=== PATIENT | male | born 1960 | race African-American/Black ===

== ENCOUNTER 2017-06-18 14:42 | Emergency (ER) | payer OTHER ==
[2017-06-18 16:43] LABS: Bilirubin,Urine NEG (Negative); Blood,Urine NEG (Negative); Ketones,Urine NEG (Negative); Leukocyte Esterase,Urine NEG (Negative); Nitrite,Urine NEG (Negative); Protein,Urine <15 mg/dL mg/dL (Negative); Urobilinogen,Urine < 2.0 mg/dL (<2.0); WBC,Urine < 1.0 /HPF (0.0-6.0)
--- NOTE | 2017-06-18 16:54 | Emergency Department Report ---
ED Male HPI - General Chief complaint: Urogenital-Male Stated complaint: CHECK UP Time Seen by Provider: 06/18/17 16:31 Source: patient, family Mode of arrival: Ambulatory Limitations: No Limitations - History of Present Illness Initial comments: 57-year-old male with a history of 2 weeks worth of left testicular swelling. Patient states that he started in an assisted left testicle swell approximately 2 weeks ago. No fevers chills nausea vomiting. No dysuria. No urinary frequency. He does not have significant pain other than when standing. MD Complaint: testicle swelling -: Gradual, week(s) (2) Location: left testicle Radiation: none Improves with: none Worsens with: none denies other symptoms, swelling. denies: discharge, mass, rash, urinary retention, blood in urine, fever, nausea/vomiting, incontinence - Related Data Allergies Allergy/AdvReac Type Severity Reaction Status Date / Time No Known Allergies Allergy Unverified 06/18/17 14:48 ED Review of Systems ROS: Stated complaint: CHECK UP Other details as noted in HPI Constitutional: denies: chills, diaphoresis Respiratory: denies: cough, shortness of breath Cardiovascular: denies: chest pain, palpitations Gastrointestinal: denies: abdominal pain, nausea, vomiting, diarrhea, constipation Genitourinary: denies: urgency, dysuria, frequency, hematuria, discharge Musculoskeletal: denies: back pain Skin: denies: rash, lesions Neurological: denies: headache, weakness, numbness, paresthesias ED Past Medical Hx - Past Medical History Previous Medical History?: No - Surgical History Past Surgical History?: No - Family History Family history: no significant - Social History Smoking Status: Current Every Day Smoker Substance Use Type: None ED Physical Exam - General Limitations: No Limitations General appearance: alert, in no apparent distress - Head Head exam: Present: atraumatic, normocephalic - Eye Eye exam: Present: normal appearance. Absent: scleral icterus, conjunctival injection - ENT ENT exam: Present: mucous membranes moist - Neck Neck exam: Present: normal inspection - Respiratory Respiratory exam: Present: normal lung sounds bilaterally. Absent: respiratory distress, wheezes - Cardiovascular Cardiovascular Exam: Present: regular rate, normal rhythm. Absent: systolic murmur, diastolic murmur, rubs, gallop - GI/Abdominal GI/Abdominal exam: Present: soft, normal bowel sounds. Absent: distended, tenderness - Rectal Rectal exam: Present: deferred - exam: Present: scrotal swelling (left-sided). Absent: testicular tenderness , urethral discharge External exam: Present: swelling. Absent: erythema, lesions, lacerations, ecchymosis - Extremities Exam Extremities exam: Absent: normal capillary refill, pedal edema - Back Exam Back exam: Present: normal inspection - Neurological Exam Neurological exam: Present: alert, oriented X3 - Psychiatric Psychiatric exam: Present: normal affect, normal mood - Skin Skin exam: Present: warm, dry, intact, normal color. Absent: rash ED Course Vital Signs 06/18/17 06/18/17 06/18/17 14:48 16:31 16:39 Temperature 97.5 F L 97.4 F L Pulse Rate 82 64 Respiratory 18 16 16 Rate Blood Pressure 139/81 Blood Pressure 134/74 [Left] O2 Sat by Pulse 96 98 Oximetry ED Medical Decision Making - Radiology Data Radiology results: report reviewed, image reviewed - Medical Decision Making 57-year-old male with 2 weeks of left testicular swelling. Denies pain fevers chills. He does have some firm swelling of the left testicle on clinical exam. Check urine and ultrasound and reassess. Large varicocele noted on ultrasound. Plan to give patient referral to urology. Portions of this chart were dictated with dictation software. There may be dictation errors contained within this note. Critical care attestation.: If time is entered above; I have spent that time in minutes in the direct care of this critically ill patient, excluding procedure time. ED Disposition Clinical Impression: Varicocele Disposition: DC- TO HOME OR SELFCARE Is pt being admited?: No Condition: Stable Instructions: Testicle Pain (ED), Varicocele (ED) Referrals: PRIMARY CARE, [Primary Care Provider] - 3-5 Days JOMAR BAXTER MD [Staff Physician] - 3-5 Days (Call for follow-up)
--- NOTE | 2017-06-18 16:59 | Ultrasound Report ---
FINAL REPORT PROCEDURE: Scrotal ultrasound. TECHNIQUE: Real-time aguilera-scale and color flow Doppler sonography in multiple planes of the scrotum, testicles, and epididymes was performed. Velocity spectral waveform analysis Doppler imaging of the arterial inflow and venous outflow of the testicles was performed with image documentation. CPT 35026 and [address]1143 HISTORY: Testicular pain and swelling for 3 weeks. COMPARISON: No prior studies are available for comparison. FINDINGS: Both testes have uniform echogenicity. There are no testicular masses. There is normal testicular blood flow demonstrated bilaterally by color flow imaging as well as Doppler spectral analysis. There is a small right hydrocele. The right epididymal head appears normal. There is a large left hydrocele. The left epididymis was not definitely visualized. There was a small mass identified near the upper pole of the testis which could represent the epididymal head or perhaps an appendix testis. This measures 4.0 millimeters x 3.0 millimeters x 3.0 millimeters. There are no varicoceles identified. IMPRESSION: Large left hydrocele. Small right hydrocele.
[2017-06-18 19:24] VITALS: BP 123/75
== END 2017-06-18 19:24 | disposition home or self-care (01) ==
LOC: ED 14:42
DX: I86.1 Scrotal varices (principal); N50.89 Other specified disorders of the male genital organs; F17.200 Nicotine dependence, unspecified, uncomplicated
CPT/HCPCS: 81001; 93975